=== PATIENT | female | born 1990 | race Hispanic/Latino ===

== ENCOUNTER 2019-07-05 10:46 | Inpatient (IN) | payer BC ==
[~2019-07-05] VITALS: Ht 167.6 cm; Wt 76.7 kg
[2019-07-12] MEDS ORDERED: LACTATED RINGERS 1000ML 1,000 ML IV PRN (11:01)
[2019-07-12] MEDS ORDERED: OXYTOCIN 10 USP UNITS/ML 20 UNIT in LACTATED RINGERS 1000ML 1,000 ML IV SCH (11:15)
[2019-07-12] MEDS ORDERED: LACTATED RINGERS 500 ML 500 ML IV PRN (11:15)
[2019-07-12] MEDS ORDERED: EPHEDRINE SULFATE 50 MG/ML AMPULE IVP PRN (11:15)
[2019-07-12] MEDS ORDERED: NALOXONE HCL 0.4 MG/1 ML ML IV PRN (11:15)
[2019-07-12] MEDS ORDERED: OXYTOCIN-LR 20 UNITS/1000 ML 1,000 ML IV SCH (11:15)
[2019-07-12] MEDS ORDERED: BUTORPHANOL TARTRATE 2 MG/ML IVP PRN (11:30)
[2019-07-12 11:46] LABS: HEMATOCRIT 37.1 % (36-48); MEAN CORPUSCULAR HEMOGLOBIN 32.3 pg (27.0-33.0); MEAN CORPUSCULAR HGB CONC 34.8 g/dL (32.0-36.0); MEAN CORPUSCULAR VOLUME 92.7 fL (79-99); NUCLEATED RED BLOOD CELLS 0.1 % (0.0-0.19); PLATELET COUNT (AUTO) 193 K/uL (130-400); RED CELL DISTRIBUTION WIDTH 13.6 % (11.0-15.5); WHITE BLOOD COUNT (AUTO) 10.1 K/uL (4.8-10.8)
[2019-07-12 11:48] LABS: APPEARANCE,URINE CLEAR (CLEAR); BILIRUBIN,URINE NEGATIVE (NEGATIVE); COLOR,URINE YELLOW (YELLOW); GLUCOSE, URINE (UA) NEGATIVE (NEGATIVE); KETONES,URINE NEGATIVE (NEGATIVE); LEUKOCYTE ESTERASE ,URINE NEGATIVE (NEGATIVE); NITRATE,URINE NEGATIVE (NEGATIVE); OCCULT BLOOD,URINE LARGE (NEGATIVE); PROTEIN,URINE NEGATIVE (NEGATIVE); UROBILINOGEN,URINE 0.2 mg/dL (0.2-1.0)
[2019-07-12 11:56] LABS: RBC,URINE 0-1 /HPF (0-1); WBC,URINE 0-1 /HPF (0-1)
[2019-07-12 11:57] LABS: BACTERIA,URINE Rare /HPF (None Seen); SQUAMOUS EPITHELIAL CELL,UR Rare /HPF (0-2)
[2019-07-12] MEDS ORDERED: FENTANYL CITRATE PF 50 MCG/1 ML 2ML VIAL ONE ×2 (15:42→17:39)
[2019-07-12] MEDS ORDERED: CALDOLOR 800MG+NS 250ML 250 ML IV ONE (17:29)
[2019-07-12] MEDS ORDERED: CEFAZOLIN SODIUM 1 GM VIAL ONE (17:29)
[2019-07-12] MEDS ORDERED: LIDOCAINE HCL-MPF 2% 5ML VIAL ONE (17:39)
[2019-07-12] MEDS ORDERED: CITRIC ACID/SODIUM CITRATE 30 ML UDCUP ONE (17:39)
[2019-07-12] MEDS ORDERED: CEFAZOLIN SODIUM 1 GM VIAL IVP ONE (17:50)
[2019-07-12] MEDS ORDERED: EPHEDRINE SULFATE 50 MG/ML AMPULE ONE (17:52)
[2019-07-12] MEDS ORDERED: OXYTOCIN 10 USP UNITS/ML ONE (17:55)
[2019-07-12] MEDS ORDERED: DURAMORPH PF1 MG/ML 10ML AMP IV ONE (17:59)
[2019-07-12] MEDS ORDERED: DiphenhydrAMINE HCL 50 MG/ML VIAL ONE (18:17)
[2019-07-12] MEDS ORDERED: PHENYLEPHRINE HCL 10 MG/ML 1ML VIAL IV ONE (18:26)
[2019-07-12] MEDS ORDERED: HYDROCODONE/ACETAMINOPHEN 5/325 MG TAB PO PRN (18:30)
[2019-07-12] MEDS ORDERED: ACETAMINOPHEN EXTRA STRENGTH 500 MG TABLET PO PRN (18:30)
[2019-07-12] MEDS ORDERED: SIMETHICONE 80 MG TAB.CHEW PO PRN (18:30)
[2019-07-12] MEDS: IBUPROFEN 800 MG TAB PO SCH ×2 (18:30→22:08)
[2019-07-12] MEDS ORDERED: OXYTOCIN-LR 20 UNITS/1000 ML 1,000 ML IV PRN (18:30)
[2019-07-12] MEDS ORDERED: PROMETHAZINE HCL 25 MG/ML 1ML AMPULE IM PRN (18:30)
[2019-07-12] MEDS ORDERED: SODIUM CHLORIDE 0.9% 10 ML VIAL IVP PRN (18:30)
[2019-07-12] MEDS ORDERED: BISACODYL 10 MG SUPP.RECT RC PRN (18:30)
[2019-07-12] MEDS ORDERED: DIPHENHYDRAMINE HCL 25 MG CAPSULE PO PRN (18:30)
[2019-07-12] MEDS ORDERED: LANOLIN 30GM OINTMENT TP PRN (18:30)
[2019-07-12] MEDS ORDERED: MEPERIDINE-PF 75 MG/ML SYG IM PRN (18:30)
[2019-07-12] MEDS ORDERED: MEASLES/MUMPS/RUBELLA VACCINE, LIVE 0.5 ML/VIAL SQ SCH (18:30)
[2019-07-12] MEDS ORDERED: DEXTROSE 5 %-0.45 % NACL 1,000 ML IV PRN (18:30)
[2019-07-12] MEDS ORDERED: ACETAMINOPHEN-CODEINE 300/30MG TAB PO PRN (18:30)
[2019-07-12] MEDS ORDERED: CITRIC ACID/SODIUM CITRATE 30 ML UDCUP PO SCH (20:00)
[2019-07-12 20:40] VITALS: BP 117/73
[2019-07-12] MEDS: DOCUSATE SODIUM 100 MG CAP PO SCH (21:38)
[2019-07-12 23:55] VITALS: BP 137/76
[2019-07-13] MEDS ORDERED: PREN-94 PO (00:19)
[2019-07-13] MEDS ORDERED: CALDOLOR 800MG+NS 250ML 250 ML IV SCH (02:30)
[2019-07-13 03:53] VITALS: BP 106/66
--- NOTE | 2019-07-13 06:40 | NUR ---
GUSTAVO LORENZ, PT. INST TO CALL FOR ASSIST BEFORE GETTING OOB; VERBALIZED UNDERSTANDING. Addendum: 07/13/19 at 0700 by CARLA NUNEZ RN RN Amended: Links added.
[2019-07-13 06:59] LABS: HEMATOCRIT 30.4 % (36-48); MEAN CORPUSCULAR HEMOGLOBIN 31.5 pg (27.0-33.0); MEAN CORPUSCULAR VOLUME 92.5 fL (79-99); PLATELET COUNT (AUTO) 168 K/uL (130-400); RED BLOOD CELL COUNT(AUTO) 3.29 MIL/uL (4.00-5.50); RED CELL DISTRIBUTION WIDTH 13.5 % (11.0-15.5)
[2019-07-13 07:29] VITALS: BP 99/58
--- NOTE | 2019-07-13 07:30 | NUR ---
FUNDUS FIRM, BLEEDING IS SCANT. DERMABOND TO INCISION, INCISION REMAINS DRY AND INTACT. ASSISTED PATIENT OOB TO CHAIR AT BEDSIDE. AT THIS TIME DR. JOHN ENTERED ROOM TO DISCUSS POC. QUESTIONS INVITED AND ANSWERED.
--- NOTE | 2019-07-13 07:30 | NUR ---
PT STATES SHE DOES NOT WANT TO TAKE ANY MEDICATIONS AND DOES NOT WISH TO RECEIVE AN ABDOMINAL BINDER. PT STATES SHE WILL TAKE HER OWN HOME MEDICATION IF SHE FEELS SHE NEEDS TO. ADVISED PATIENT TO NOTIFY NURSE WHEN AND IF SHE TAKES ANY MEDICATION FOR PROPER DOCUMENTATION. PT VOICED UNDERSTANDING.
[2019-07-13 08:11] LABS: HEPATITIS Bs ANTIGEN SCREEN P Negative (Negative)
[2019-07-13] MEDS: LIDOCAINE 5% TOPICAL PATCH TP SCH (09:00)
[2019-07-13] MEDS: DOCUSATE SODIUM 100 MG CAP PO SCH ×2 (09:00→21:00)
--- NOTE | 2019-07-13 09:45 | NUR ---
PT IS IN THE SHOWER AT THIS TIME. INCISION CARE REVIEWED WITH PATIENT.
--- NOTE | 2019-07-13 10:15 | NUR ---
PT AMBULATING IN THE HALLWAY ACCOMPANIED BY FAMILY MEMBER. NO DIZZINESS REPORTED, STEADY GAIT NOTED.
[2019-07-13] MEDS: IBUPROFEN 800 MG TAB PO SCH ×2 (10:30→18:24)
[2019-07-13 12:00] VITALS: BP 98/58
[2019-07-13 16:12] VITALS: BP 104/57
[2019-07-13 19:20] VITALS: BP 104/62
[2019-07-14 00:17] VITALS: BP 101/63
[2019-07-14] MEDS: IBUPROFEN 800 MG TAB PO SCH ×2 (02:30→10:30)
[2019-07-14 03:26] VITALS: BP 118/65
[2019-07-14 07:21] VITALS: BP 108/55
[2019-07-14] MEDS: DOCUSATE SODIUM 100 MG CAP PO SCH (09:00)
[2019-07-14] MEDS: LIDOCAINE 5% TOPICAL PATCH TP SCH (09:00)
--- NOTE | 2019-07-14 11:35 | NUR ---
DISCHARGE INSTRUCTIONS READ AND EXPLAINED TO PATIENT. PRESCRIPTION FOR TYLENOL#3 COLACE 100MG, MOTRIN 800MG HANDED TO PATIENT. QUESTIONS INVITED AND ANSWERED. POST HEMORRHAGE AND INCISION CARE REVIEWED WITH PT. PT VOICED UNDERSTANDING.
[2019-07-14 11:43] VITALS: BP 114/62
--- NOTE | 2019-07-14 12:40 | NUR ---
PATIENT LEFT UN TI VISHAL WHEELCHAIAT WITH BABY IN ARMS ACCOMPANIED Addendum: 07/14/19 at 1302 by HITESH MATIAS LVN LVN PT LEFT UNIT VIA WHEELCHAIR WITH BABY IN HAND. PERSONAL VEHICLE USED FOR TRANSPORTATION ACCOMPANIED BY FAMILY. BABY SECURE IN CARSEAT. NO COMPLAINTS OR CONCERNS ADDRESSED FROM PATIENT ON DISCHARGE.
== END 2019-07-14 12:40 | disposition home or self-care (01) | DRG 788 ==
LOC: PREOBSVTOIN 10:51 → LDH 07-12 10:53 → WSH 07-12 20:39
PROVIDERS: ADMIT Obstetrics & Gynecology; ATTEND Obstetrics & Gynecology
PROC: 3E0234Z Introduction of Serum, Toxoid and Vaccine into Muscle, Percutaneous Approach (ICD-10-PCS; 2019-07-12)
PROC: 10D00Z1 Extraction of Products of Conception, Low, Open Approach (ICD-10-PCS; principal; 2019-07-12 17:45)
DX: O69.81X0 Labor and delivery complicated by cord around neck, without compression, not applicable or unspecified (principal); Z23 Encounter for immunization; O76 Abnormality in fetal heart rate and rhythm complicating labor and delivery; O77.0 Labor and delivery complicated by meconium in amniotic fluid; O61.9 Failed induction of labor, unspecified; Z37.0 Single live birth; Z3A.41 41 weeks gestation of pregnancy
CPT/HCPCS: 36415; 59510; 81001; 82948; 85027; 86592; 86850; 86900; 86901; 87340; A4314; A4344; G0378; J0690; J1200; J1741; J2274; J2370; J2590; J3010; J3490; J7120

== ENCOUNTER → 2023-06-15 | Outpatient (CLI) | payer BC ==
[~2023-06-15] MED LIST: PREN-94 PO
[2023-06-15 10:38] LABS: THYROID STIMULATING HORMONE 293.44 uIU/mL (0.36-3.74)
== END | disposition home or self-care (01) ==
LOC: RAH 08:41
PROVIDERS: ATTEND Otolaryngology
DX: E07.1 Dyshormogenetic goiter (principal)
CPT/HCPCS: 36415; 76536; 84439; 84443; 84481

== ENCOUNTER → 2023-07-20 | Outpatient (CLI) | payer BC ==
[~2023-07-20] MED LIST changes: +IOHEXOL 350 MG/ML 100ML INFUS..BTL IV ONE
== END | disposition home or self-care (01) ==
LOC: RAH 13:53
PROVIDERS: ATTEND Otolaryngology
DX: E06.2 Chronic thyroiditis with transient thyrotoxicosis (principal)
CPT/HCPCS: 70492; 84443; 86376; 86800; 36415; Q9967